=== PATIENT | female | born 1945 | race Caucasian/White ===

== ENCOUNTER → 2020-08-27 | Outpatient (CLI) | payer MEDICARE | END | disposition home or self-care (01) | LOC: ROC 08-23 09:11 | PROVIDERS: ATTEND Radiology Radiation Oncology | DX: C34.12 Malignant neoplasm of upper lobe, left bronchus or lung (principal); C79.31 Secondary malignant neoplasm of brain | CPT/HCPCS: 99214; G0463 ==

== ENCOUNTER → 2020-09-04 | Outpatient (CLI) | payer MEDICARE ==
[~2020-09-04] MED LIST: GADOTERATE 7.5 MMOL/15ML SYR ONE
== END | disposition home or self-care (01) ==
LOC: RAD 13:17
PROVIDERS: ATTEND Radiology Radiation Oncology
DX: C79.31 Secondary malignant neoplasm of brain (principal); C34.12 Malignant neoplasm of upper lobe, left bronchus or lung; G93.89 Other specified disorders of brain
CPT/HCPCS: 70553; A9575

== ENCOUNTER → 2020-09-11 | Outpatient (CLI) | payer MEDICARE | END | disposition home or self-care (01) | LOC: CFH 13:48 | PROVIDERS: ATTEND Radiology Radiation Oncology | DX: I82.492 Acute embolism and thrombosis of other specified deep vein of left lower extremity (principal); C79.31 Secondary malignant neoplasm of brain; C34.12 Malignant neoplasm of upper lobe, left bronchus or lung ==

== ENCOUNTER 2020-10-24 11:56 | Outpatient (CLI) | payer MEDICARE | END 2020-10-24 23:59 | disposition home or self-care (01) | LOC: ROC 11:56 | PROVIDERS: ATTEND Radiology Radiation Oncology | DX: Z08 Encounter for follow-up examination after completed treatment for malignant neoplasm (principal); Z85.118 Personal history of other malignant neoplasm of bronchus and lung; Z85.841 Personal history of malignant neoplasm of brain | CPT/HCPCS: G0463 ==

== ENCOUNTER → 2020-12-10 | Outpatient (CLI) | payer MEDICARE | END | disposition home or self-care (01) | LOC: ROC 09:31 | PROVIDERS: ATTEND Radiology Radiation Oncology | DX: C34.12 Malignant neoplasm of upper lobe, left bronchus or lung (principal); C79.31 Secondary malignant neoplasm of brain | CPT/HCPCS: G0463 ==

== ENCOUNTER 2021-02-06 07:35 | Outpatient (CLI) | payer MEDICARE | END 2021-02-06 23:59 | disposition home or self-care (01) | LOC: ROC 07:35 | PROVIDERS: ATTEND Radiology Radiation Oncology | DX: C79.31 Secondary malignant neoplasm of brain (principal); C34.12 Malignant neoplasm of upper lobe, left bronchus or lung | CPT/HCPCS: 99213; G0463; G2251 ==